=== PATIENT | female | born 1955 | race Caucasian/White ===

== ENCOUNTER → 2017-06-24 | Outpatient (CLI) | payer MEDICARE | LOC: KOH-I 08:45 | DX: M84.371 Stress fracture, right ankle (principal); M19.071 Primary osteoarthritis, right ankle and foot; M25.461 Effusion, right knee; R60.9 Edema, unspecified; Z98.890 Other specified postprocedural states | CPT/HCPCS: 73700 ==

== ENCOUNTER → 2020-12-30 | Outpatient (CLI) | payer OTHER ==
[~2020-12-30] MED LIST: AMBIEN10 MG PO; AMITRIPTYLINE H75 MG PO; ASPIRIN EC81 MG PO; CARDIZEM 30MG T30 MG PO; CYMBALTA60 MG PO; IBUPROFEN800 MG PO; KEFLEX CAP 500500 MG PO; LAMISIL250 MG PO; LIPITOR TAB 1010 MG PO; LOPRESSOR 25 MG25 MG PO; NITROSTAT0.4 MG SL; NORCO 7.5-3251 EACH PO; OMEGA 3 PO; OMEPRAZOLE20 M1 PO; SYNTHROID25 MCG PO; VITAMIN C500 M4 PO; XANAX0.5 MG PO; ZANAFLEX4 MG PO; ZYLOPRIM 300 M300 MG PO
== END ==
LOC: KOH-I 14:31
DX: M79.671 Pain in right foot (principal); M25.571 Pain in right ankle and joints of right foot; M19.071 Primary osteoarthritis, right ankle and foot; Z96.661 Presence of right artificial ankle joint
CPT/HCPCS: 73610; 73630